=== PATIENT | female | born 1970 | race Caucasian/White ===

== ENCOUNTER 2019-06-11 04:35 | Day surgery (SDC) | payer OTHER ==
[2019-06-04 15:25] VITALS: BMI 23.5
[2019-06-11] MEDS ORDERED: PROPOFOL 20 ML ONE (12:15)
[2019-06-11] MEDS ORDERED: ceFAZolin SODIUM 1 GM VIAL ONE (12:15)
[2019-06-11] MEDS ORDERED: KETOROLAC TROMETHAMINE 30 MG/1 ML VIAL ONE (12:15)
[2019-06-11] MEDS ORDERED: MIDAZOLAM HCL 2 MG/2 ML SINGLE DOSE VIAL ONE ×2 (12:15→12:25)
[2019-06-11] MEDS ORDERED: DEXAMETHASONE SOD PHOSPHATE 4 MG/1 ML VIAL ONE (12:15)
[2019-06-11] MEDS ORDERED: ceFAZolin SODIUM 1 GM VIAL IVPB ONE (12:25)
[2019-06-11] MEDS ORDERED: ACETAMINOPHEN 325 MG TABLET (FP) PO PRN ×2 (12:59→13:23)
[2019-06-11] MEDS ORDERED: IBUPROFEN 400 MG TABLET (FP) PO PRN (13:23)
[2019-06-11 14:33] VITALS: TEMP 97.4
[2019-06-11] MEDS ORDERED: ONDANSETRON 4 MG/2 ML VIAL IVPB ONE (15:15)
[2019-06-11] MEDS ORDERED: ONDANSETRON 4 MG/2 ML VIAL ONE (15:17)
[2019-06-11] MEDS ORDERED: ONDANSETRON 4 MG/2 ML VIAL IVPUSH ONE (16:32)
[2019-06-11 17:17] VITALS: BP 116/75; PULSE 86
--- NOTE | 2019-06-11 23:45 | OP ---
DATE OF OPERATION: 06/11/2019 PREOPERATIVE DIAGNOSES: Fibroid uterus and abnormal uterine bleeding. POSTOPERATIVE DIAGNOSES: Fibroid uterus and abnormal uterine bleeding. SURGERY: Hysteroscopy and dilatation and curettage. SURGEON: Lorenza Ribeiro MD ANESTHESIA: Fractional by Ismael Choudhury MD. DESCRIPTION OF PROCEDURE: Once patient was prepped and draped and under fractional anesthesia in lithotomy position, examination under anesthesia revealed vagina clean, cervix closed. Corpus was about 9-10 cm, full of fibroids. Adnexa negative. During the procedure, weighted speculum was applied in the vagina. Cervix grasped with tenaculum. Cervical canal was dilated up to number 31 [address]gar. Uterine cavity was difficult to invade because the fibroid occupied the complete endometrial cavity. First, I did hysteroscopy with the help of saline media and was able to see the entire endometrial cavity, pushing the fibroid away. There was some hyperplasia and the big fibroid occupying the endometrial cavity. After hysteroscopy, then endocervical curetting was done, and a small amount of tissue was removed. An endometrial curetting was done. With the help of polyp forceps , there was no polyp or a big fibroid that occupied from the lower segment of the uterus and up. However, I was able to get tissue from the endometrium. Estimated blood loss was 10 mL. Patient tolerated the procedure, was sent to recovery room. Lorenza RIBEIRO M.D. [id number]
--- NOTE | 2019-06-12 16:39 | PATH ---
Surgical Pathology Report Patient Name: LONNY MCNAIR [facility]. Rec. #: [id number] /Age/Gender: 1970 (Age: 48) / F Account: [id number] Location: [facility] SURGICAL Taken: 06/11/2019 Received: 06/11/2019 Reported: 06/12/2019 Physicians: Jeffery Gayle M.D. Specimen(s) Received A: ENDOCERVICAL CURETTINGS B: ENDOMETRIAL CURETTINGS Clinical History Uterine bleeding Final Diagnosis A. 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 NEGATIVE FOR DYSPLASIA. B. ENDOMETRIAL CURETTINGS: NO ENDOMETRIAL TISSUE PRESENT FOR EVALUATION. 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 NEGATIVE FOR DYSPLASIA. Electronically Signed Kimi Herrera M.D. Gross Description A. Received in formalin labeled "endocervical curettings," is a 1.8 x 1.5 x 0.2 cm aggregate of blood-tinged mucus, possibly containing soft tissue fragments. The formalin is filtered and the specimen is entirely submitted in one cassette. B. Received in formalin labeled "endometrial curettings," is a 1.1 x 0.9 x 0.1 cm aggregate of blood-tinged mucus, possibly containing soft tissue fragments. The formalin is filtered and the specimen is entirely submitted in one cassette. 06/11/2019 [facility]06/11/2019
== END 2019-06-11 16:30 | disposition home or self-care (01) ==
LOC: JASU-SURG 04:35
PROVIDERS: ATTEND Obstetrics & Gynecology
PROC: 0UDB8ZZ Extraction of Endometrium, Via Natural or Artificial Opening Endoscopic (ICD-10-PCS; principal; 2019-06-11 12:00)
DX: D25.9 Leiomyoma of uterus, unspecified (principal); N93.9 Abnormal uterine and vaginal bleeding, unspecified
CPT/HCPCS: 84703; 94760